=== PATIENT | female | born 1985 | race Caucasian/White ===

== ENCOUNTER → 2021-08-22 02:57 | Outpatient (CLI) | payer OTHER, SELFPAY ==
[2021-08-22 20:55] LABS: SARS-CoV-2 RNA PCR Positive
== END ==
PROVIDERS: Physician Assistant; PCP Family Medicine; Visit Provider Family Medicine
DX: U07.1 COVID-19 (principal)
CPT/HCPCS: C9803; U0003; U0005

== ENCOUNTER 2023-10-23 08:42 | Outpatient (CLI) | payer BC, SELFPAY ==
--- NOTE | ~2023-10-23 | MM_ITS ---
EXAMINATION: MM diagnostic mona BI w nicole HISTORY: Bilateral upper inner quadrant burning, bilateral lateral pain TECHNIQUE: ML, MLO and CC 3-D tomosynthesis images of both breasts were performed and synthetic 2-D i mages were generated. CAD analysis was submitted and interpreted. COMPARISON: None BREAST PARENCHYMAL COMPOSITION: The breasts are almost entirely fatty. FINDINGS: No suspicious mass or architectural distortion, malignant calcification, skin thickening or retraction is detected. IMPRESSION: 1. Normal mammogram; no evidence of malignancy 2. Routine annual mammographic screening beginning at age 40 is recommended unless there are earlier symptoms or physical findings BI-RADS Category 1: Negative Reviewed, dictated and finalized at location A. PER [facility] IMPRESSION: 1. Normal mammogram; no evidence of malignancy 2. Routine annual mammographic screening beginning at age 40 is recommended unl ess there are earlier symptoms or physical findings BI-RADS Category 1: Negative
== END 2023-10-23 08:43 ==
PROVIDERS: PCP Obstetrics & Gynecology; Visit Provider Obstetrics & Gynecology
DX: N64.4 Mastodynia (principal)
CPT/HCPCS: 77062; 77066; G0279

== ENCOUNTER 2024-02-15 00:52 | Day surgery (SDC) | payer BC, SELFPAY ==
[2024-02-01 12:54] VITALS: BMI 39.0
[2024-02-15 12:38] VITALS: BP 153/91; PULSE 78; RESP 18; TEMP 36.5; O2SAT 98
--- NOTE | 2024-02-15 12:39 | WPDANESEPPF ---
Anes - Initial Pre Proc Eval Procedure: Operation Date: 02/15/24 15:30 Proposed Procedures p Esophagogastroduodenoscopy & Colonoscopy - Jh Basilio MD Date/Time: 02/15/24 12:39 Surgeon: Jh Basilio MD Pre Op Diagnosis: Nausea, RUQ pain,CIBH, Melena Patient Data Age: 38 Gender: F Height: 1.6 m Weight: 100 kg Allergies Allergy/AdvReac Type Severity Reaction Status Date / Time No Known Allergies Allergy Verified 02/15/24 12:32 Home Medications Medication Instructions Recorded Confirmed Type levonorgestrel 20.4 mcg/24 hr (up 1 device intrauterine ONCE 09/26/19 02/11/24 History to 8 yrs) 52 mg intrauterine device (Liletta) trazodone 50 mg tablet 25 mg PO QHS PRN insomnia 12/26/22 02/11/24 History albuterol sulfate 90 mcg/actuation 1 puff inhalation Q4H PRN 04/09/23 02/11/24 Rx aerosol inhaler shortness of breath or wheezing #8.5 grams bupropion HCl 300 mg 24 hr tablet, 300 mg PO DAILY 10/28/23 02/15/24 History extended release propranolol 10 mg tablet 10 mg PO BID 10/28/23 02/15/24 History rifaximin 550 mg tablet (Xifaxan) 550 mg PO TID 14 days #42 tabs 01/21/24 02/11/24 Rx cyanocobalamin (vitamin B-12) 2,500 mcg PO DAILY 02/01/24 02/11/24 History 2,500 mcg sublingual tablet (Vitamin B-12) duloxetine 20 mg capsule,delayed 20 mg PO DAILY #90 caps 02/11/24 02/15/24 Rx release triamcinolone acetonide 0.025 % 1 applic topical BID PRN 02/11/24 02/11/24 Rx topical cream itching/rash #454 grams Patient hx anesthesia problems: none Family hx anesthesia problems: none Results Review: All pre-operative results and documents have been reviewed as part of the pre-operative evaluation. [facility] Past Medical History Medical History HTN (hypertension) Tobacco use Vitamin B12 deficiency Vitamin D deficiency Family History Family History Mother Hypertension Other Diabetes mellitus Social History Social History Social History: Smoking packs per day: 0.5 Smoking cigarettes per day: 10.0 Years smoked: 20 Smoking pack-years: 10.00 Smoking status: Former smoker Tobacco type: cigarettes Second hand tobacco smoke exposure: Yes Smoking end date: 05/09/23 Alcohol intake: never Alcohol use details: Occasionally Substance use: current Substance use type: marijuana Do You Feel Safe in your Home?: Yes Lack of Transportation: No Lack of Food: Never True Current Housing: I Have Housing Concerned About Future Housing: No Difficulty Paying Gas/Electric Bills: No Difficulty Paying for Meds: No Currently Unemployed: YES Education: Don't Know Difficulty w/ Childcare or Family Care: No Living arrangements: with family Occupation/Education: unemployed Gender identity (if verbalized by the patient): Female Sexual Orientation (if Verbalized by the Patient): Straight or Heterosexual Spiritual care concerns: No Anes - Eval Final PreProcedure Day of Procedure 02/15/24 12:39 Patient weight: morbidly obese Heart: regular rate and rhythm Lungs: clear to auscultation Airway: Mallampati scale class II Neurological: alert and oriented Last oral intake: >/= 8 hours ASA classification: III Emergent: no Anesthetic plan: proceed Anesthesia type and monitoring: general GIVS and standard monitoring Results Review: All pre-operative results and documents have been reviewed as part of the pre-operative evaluation. Informed Consent: The patient's anesthetic plan and its attendant risks and benefits were discussed with the patient/family/POA. Questions were solicited and answers provided to the satisfaction of the patient/family/POA.
[2024-02-15] MEDS: LACTATED RINGERS 1,000 ML 150 ML IV CONT (12:51)
--- NOTE | 2024-02-15 12:54 | WPDHPUPDATE1 ---
History and Physical Update Update Date/Time: 02/15/24 12:54 History and Physical has been reviewed, including an updated exam of the patient. There are NO changes in the patient's condition. Risks, benefits, and alternatives have been discussed and questions answered. Patient agrees to proceed with procedure.
[2024-02-15] MEDS: BENZOCAINE (*SP) 60 ML SPRAY CAN (HURRICAINE) 1 SPRAY MUCOUS MEM (12:55)
--- NOTE | 2024-02-15 13:16 | SUR.OPER ---
EGD START 1258, END 1303 COLONOSCOPY START 1307, END 1316
[2024-02-15 13:21] VITALS: BP 101/72; PULSE 76; RESP 16; O2SAT 97
[2024-02-15 13:31] VITALS: BP 111/72; PULSE 73; RESP 17; O2SAT 97
[2024-02-15 13:41] VITALS: BP 116/79; PULSE 63; RESP 18; O2SAT 100
== END 2024-02-15 13:49 | disposition home or self-care (01) ==
PROVIDERS: PCP Family Medicine; Referring Provider Nurse Practitioner; Visit Provider Internal Medicine Gastroenterology
PROC: 0DJ08ZZ Inspection of Upper Intestinal Tract, Via Natural or Artificial Opening Endoscopic (ICD-10-PCS; CPT 43235; principal; 2024-02-15 15:30)
DX: K29.50 Unspecified chronic gastritis without bleeding (principal); B96.81 Helicobacter pylori [H. pylori] as the cause of diseases classified elsewhere; K64.8 Other hemorrhoids; E53.8 Deficiency of other specified B group vitamins; Z79.51 Long term (current) use of inhaled steroids; Z87.891 Personal history of nicotine dependence; F12.90 Cannabis use, unspecified, uncomplicated; E66.01 Morbid (severe) obesity due to excess calories; Z68.37 Body mass index [BMI] 37.0-37.9, adult
CPT/HCPCS: 45378; 43239; 88305; J2704; J7120

== ENCOUNTER 2024-05-13 11:35 | Emergency (ER) | payer BC, SELFPAY ==
[2024-05-13 12:21] VITALS: BP 135/99; PULSE 81; RESP 16; TEMP 36.6; O2SAT 100
[2024-05-13 17:50] VITALS: BP 140/98; PULSE 83; RESP 18; TEMP 36.6; O2SAT 100
--- NOTE | 2024-05-13 18:01 | ED.EAR ---
HPI - Ear Problem General Chief complaint: Ear Stated complaint: R ear pain Time Seen by Provider: 05/13/24 17:37 History of Present Illness HPI Narrative: 38-year-old female presenting to the emergency department for evaluation for persistent right ear pain. Patient was just recently treated with antibiotics for bilateral ear infection. Patient was treated with Augmentin. Patient completed the antibiotics approximately 5 days ago but states that she is still having right ear pain. Related Data Home Medications Medication Instructions Recorded Confirmed levonorgestrel 20.4 mcg/24 hr (up 1 device intrauterine ONCE 09/26/19 03/24/24 to 8 yrs) 52 mg intrauterine device (Liletta) trazodone 50 mg tablet 25 mg PO QHS PRN insomnia 12/26/22 03/24/24 bupropion HCl 300 mg 24 hr tablet, 300 mg PO DAILY 10/28/23 03/24/24 extended release propranolol 10 mg tablet 10 mg PO BID 10/28/23 03/24/24 cyanocobalamin (vitamin B-12) 2,500 mcg PO DAILY 02/01/24 03/24/24 2,500 mcg sublingual tablet (Vitamin B-12) Allergies Allergy/AdvReac Type Severity Reaction Status Date / Time No Known Allergies Allergy Verified 05/04/24 09:45 Review of Systems Review of Systems: All systems reviewed & are unremarkable except as noted in HPI and below PMFSH Past Medical History Medical History HTN (hypertension) Tobacco use Vitamin B12 deficiency Vitamin D deficiency Family History Family History Mother Hypertension Other Diabetes mellitus Social History Social History Social History: Smoking packs per day: 0.5 Smoking cigarettes per day: 10.0 Years smoked: 20 Smoking pack-years: 10.00 Smoking status: Former smoker Tobacco type: cigarettes Second hand tobacco smoke exposure: Yes Smoking end date: 05/09/23 Alcohol intake: never Alcohol use details: Occasionally Substance use: current Substance use type: marijuana Do You Feel Safe in your Home?: Yes Lack of Transportation: No Lack of Food: Never True Current Housing: I Have Housing Concerned About Future Housing: No Difficulty Paying Gas/Electric Bills: No Difficulty Paying for Meds: No Currently Unemployed: YES Education: Don't Know Difficulty w/ Childcare or Family Care: No Living arrangements: with family Occupation/Education: unemployed Gender identity (if verbalized by the patient): Female Sexual Orientation (if Verbalized by the Patient): Straight or Heterosexual Spiritual care concerns: No Exam Narrative: APPEARANCE: Well appearing, no pain, no distress, well-nourished. HEAD: normocephalic, atraumatic. EYES: PERRLA/EOMI, conjunctivae clear. NOSE: Normal no drainage EARS: Right TM erythema THROAT: Pharynx clear, no exudate. NECK: Supple. No adenopathy, no masses. RESPIRATORY: Airway patent, respirations nonlabored. Clear to auscultation bilaterally, no rales, rhonchi, wheezing. CARDIOVASCULAR: Regular rate and rhythm without murmurs rubs or gallops. ABDOMINAL: Soft, nontender, nondistended, normal bowel sounds MUSCULOSKELETAL: Moves all extremities. Strength/ROM intact, No edema, No calf tenderness. NEURO: Alert. Cranial nerves II through XII intact. Good gait. Good coordination SKIN: Warm, dry. Normal Color PSYCHIATRIC: Normal affect/mood. Course Course Emergency Course: Patient was treated with cefpodoxime for right otitis media Vital Signs Vital signs: Vital Signs Temperature 97.8 F 05/13/24 12:21 Pulse Rate 81 05/13/24 12:21 Respiratory Rate 16 05/13/24 12:21 Blood Pressure 135/99 H 05/13/24 12:21 Pulse Oximetry 100 05/13/24 12:21 Oxygen Delivery Room Air 05/13/24 12:21 Temperature 97.9 F 05/13/24 17:50 Pulse Rate 83 05/13/24 17:50 Respiratory Rate 18 05/13/24 17:50 Blood Pressure 140/98
== END 2024-05-13 18:17 | disposition home or self-care (01) ==
PROVIDERS: Emergency Provider Emergency Medicine; PCP Family Medicine
DX: H66.91 Otitis media, unspecified, right ear (principal); I10 Essential (primary) hypertension; E55.9 Vitamin D deficiency, unspecified; E53.8 Deficiency of other specified B group vitamins; Z87.891 Personal history of nicotine dependence
CPT/HCPCS: 99283